=== PATIENT | female | born 1985 | race Caucasian/White ===

== ENCOUNTER → 2022-09-06 13:20 | Outpatient (CLI) | payer SELFPAY | PROVIDERS: Referring Provider Internal Medicine; Visit Provider Internal Medicine | DX: Z23 Encounter for immunization (principal) | CPT/HCPCS: 90471; 90686 ==

== ENCOUNTER 2022-10-05 10:03 | Emergency (ER) | payer OTHER, SELFPAY ==
[2022-10-05] VITALS (24 sets, daily range): BP systolic 106–145; BP diastolic 53–68; PULSE 102–121; RESP 13–22; TEMP 37.2; O2SAT 95–100; BMI 23.8
--- NOTE | 2022-10-05 10:21 | DI.CT.S_ITS ---
PROCEDURE: CT ANGIO HEAD AND NECK INDICATIONS: left visual loss TECHNIQUE: After the administration of intravenous contrast, 1 mm thick sections acquired from the aortic arch through the [place] of [place]. Post-contrast 4.5 mm thick sections then re-acquired from the foramen magnum to the vertex. For radiation dose reduction, the following was used: automated exposure control, adjustment of mA and/or kV according to patient size. COMPARISON: None. FINDINGS: Image quality: Excellent. BRAIN: CSF spaces: Ventricles are normal in size and shape. Basal cisterns are patent. No extra-axial fluid collections. Brain: No midline shift. No intracranial bleeds or masses. Jesus-white matter interface appears intact. Skull and face: Calvarium and facial bones appear intact, without suspicious lesions. Orbits appear normal. Sinuses: Sinuses and mastoids are clear. HEAD CT ANGIOGRAPHY: Anterior circulation: Intracranial internal carotid arteries are normal in size and flow. The flow within the paired anterior cerebral arteries is normal and symmetric. The flow within the middle cerebral arteries is normal and symmetric. The anterior communicating artery is seen. No aneurysms are seen. Posterior circulation: Visualized portions of the vertebral arteries demonstrate normal caliber, and join to form a normal appearing basilar artery. Flow within the posterior cerebral arteries is normal and symmetric. No aneurysms are seen. NECK CT ANGIOGRAPHY: Carotid system: The great vessels demonstrate a conventional anatomy as they arise from the aortic arch. The origins of the common carotid arteries appear patent. The common carotid arteries demonstrate normal caliber and courses. The bifurcation regions are both widely patent. The internal carotid arteries demonstrate normal calibers and courses. Posterior circulation: The origins of the vertebral arteries both appear widely patent. The more superior extracranial portions of both vertebral arteries also demonstrate normal courses and calibers. They join to form a normal appearing basilar artery. Soft tissues: Visualized neck soft tissues demonstrate no suspicious abnormalities. Bones: No suspicious bony lesions. Visualized cervical spine appears normally aligned. IMPRESSION: 1. Normal CT angiogram of the head and neck Any quantitative measurements of stenosis were performed using NASCET criteria. Approved by: Uri Fregoso M.D. on 10/05/2022 at 10:45
--- NOTE | 2022-10-05 10:21 | DI.CT.S_ITS ---
PROCEDURE: CT STROKE INDICATIONS: left visual loss TECHNIQUE: Noncontrast 4.5 mm thick angled axial sections acquired from the foramen magnum to the vertex, with coronal reformats. For radiation dose reduction, the following was used: automated exposure control, adjustment of mA and/or kV according to patient size. COMPARISON: None. FINDINGS: Image quality: Excellent. CSF spaces: Basal cisterns are patent. No extra-axial fluid collections. Ventricles are normal in size and shape. Brain: No midline shift. No intracranial masses or hemorrhage. Jesus-white matter interface is normal. Skull and face: Calvarium and visualized facial bones are intact, without suspicious lesions. Sinuses: Visualized sinuses and mastoids are clear. IMPRESSION: No intracranial hemorrhage or other acute intracranial abnormality. Results discussed with Dr. Polo by Dr. Santillan at 1040 hours on 10/05/2022. This study fulfills neurological imaging criteria for inclusion or exclusion of acute stroke therapies based on available published neurological imaging guidelines. Dictated by: Lorne Santillan M.D. on 10/05/2022 at 10:30 Approved by: Lorne Santillan M.D. on 10/05/2022 at 10:40
[2022-10-05 10:30] LABS: Prothrombin Time 11.5 SECONDS (10.1-12.7)
[2022-10-05 10:32] LABS: Add Manual Diff / Slide Review NO; Basophils Absolute Auto 0 /uL (0-100); Basophils Percent Auto 0.8 % (0-2); Eosinophils Absolute Auto 100 /uL (0-450); Eosinophils Percent Auto 0.9 % (2-4); Hematocrit 40.6 % (36-46); Hemoglobin 13.7 g/dL (12.0-16.0); Lymphocytes Absolute Auto 2800 /uL (1100-4500); Lymphocytes Percent Auto 45.2 % (25-40); Mean Corpuscular HGB Conc 33.8 % (30-36); Mean Corpuscular Volume 82.8 fL (80-100); Monocytes Absolute Auto 600 /uL (0-900); Monocytes Percent Auto 9.1 % (3-14); Neutrophils Absolute Auto 2700 /uL (1500-7000); Platelet Count 262 X10^3/uL (150-400); Red Blood Cell Count 4.91 X10^6/uL (4.0-5.2); Red Cell Distribution Width 13.1 % (11.6-14.8); White Blood Cell Count 6.2 X10^3/uL (4.5-11.0)
[2022-10-05 10:33] LABS: PTT Partial Thromboplastin Tim 32 SECONDS (26-36)
--- NOTE | 2022-10-05 10:36 | ED_ITS ---
HPI - Neuro Symptoms/Deficit General Chief Complaint: Neuro Symptoms/Deficit Stated Complaint: blurry vision on left eye Time Seen by Provider: 10/05/22 10:21 Source: patient Mode of arrival: Ambulatory History of Present Illness HPI Narrative: Patient is a 37-year-old female history of migraines presenting today with left visual loss. She said she was sitting at her computer at work she had been there for about 2 hours looking at a screen trying treated emails that she could not see it she had complete visual loss for about a couple of seconds. She now says that her whole left eye is blurry. She is a mild headache. No numbness tingling or weakness no chest pain shortness of breath or other symptoms. On Anticoagulants: No Related Data Allergies Allergy/AdvReac Type Severity Reaction Status Date / Time No Known Drug Allergies Allergy Verified 10/05/22 10:09 Review of Systems Review of Systems Narrative: GENERAL: Denies chills, fatigue, malaise, fever, sweats, travel HEENT: See HPI RESPIRATORY: Denies dyspnea, cough, wheezing, hemoptysis, sputum. CARDIOVASCULAR: Denies chest pain, palpitations, orthopnea, edema GASTROINTESTINAL: Denies nausea, vomiting, abdominal pain, diarrhea, constipation, melena. : Denies dysuria, frequency, incontinence, hematuria, urinary retention, flank pain. MUSCULOSKELETAL: Denies weakness, joint pain, or bony pain SKIN: No rash, no erythema, no pruritus NEUROLOGIC: See HPI PSYCHIATRIC: No concerning psychosocial issues. 12 point review of systems is negative except for those stated above and HPI Hematologic/Lymphatic On Anticoagulants: No Patient History Social History Smoking Status: Current every day smoker Smoking Status: Current every day smoker alcohol intake frequency: holidays/special occasions only Substance Use Type: does not use Exam Initial Vital Signs Initial Vital Signs: Vital Signs Temperature 98.9 F 10/05/22 10:09 Pulse Rate 121 H 10/05/22 10:09 Respiratory Rate 16 10/05/22 10:09 Blood Pressure 126/68 10/05/22 10:09 Pulse Oximetry 97 10/05/22 10:09 Oxygen Delivery Method 10/05/22 10:09 GENERAL: Alert pleasant 37-year-old female HEENT: Head atraumatic,EOMI, pupils reactive, red reflex present bilaterally face symmetric, moist mucous membranes CARDIOVASCULAR: Tachycardic regular no murmur RESPIRATORY: Breath sounds equal bilaterally, no wheezes rales or rhonchi. ABDOMEN: Soft, nontender. Normoactive bowel sounds all 4 quadrants. No guarding or rebound. EXTREMITIES: Normal range of motion, no clubbing or edema. Neurovascularly intact NEUROLOGICAL: Alert and oriented x4.Normal gait and speech. Cranial nerves II through XII grossly intact. Good [id number], good [id number], strength equal bilaterally, no dysarthria or aphasia, sensation in tact to soft touch bilaterally, no visual changes, no facial droop SKIN: Warm, dry, no laceration, no petechiae, no rashes or lesions. Scores NIH Stroke Scale Level of Conciousness: Alert, keenly responsive Ask month/age: Answers both questions correctly. Open/close eyes, close hand: Performs both tasks correctly Best gaze horizontal: Normal Visual valentino: No visual loss Facial palsy: Normal symetrical movement Left arm drift: No drift for full 10 sec Right arm drift: No drift for full 10 sec Left leg drift: No drift for full 5 sec Right leg drift: No drift for full 5 sec Limb ataxia: Absent Sensory on face/arms/legs: Normal, no sensory loss Best language: No aphasia, normal Dysarthria: Normal Extinction or inattention: No abnormality Total NIH Stroke scale score: 0 Course Orders Ordered: ED Orders 10/05/22 11:10 COVID19 -Nasal RAPID/Pre-Proc Stat 10/05/22 11:36 Urinalysis and Microscopic Stat Urine Culture Stat 10/05/22 11:56 Urine Drug Screen, Rapid Stat Discontinued Medications Acetaminophen (Acetaminophen 325 Mg Tablet) 975 mg PO NOW ONE Stop: 10/05/22 11:51 Last Admin: 10/05/22 11:53 Dose: 975 mg Documented By: RB Sodium Chloride (Normal Saline 0.9%) 1,000 mls @ 1,000 mls/hr IV BOLUS ONE Stop: 10/05/22 11:41 Last Infusion: 10/05/22 13:14 Dose: 0 mls/hr Documented By: Admin: 10/05/22 11:16 Dose: 1,000 mls/hr Documented By: RB Sodium Chloride (Normal Saline 0.9%) 1,000 mls @ 1,000 mls/hr IV BOLUS ONE Stop: 10/05/22 14:39 Last Infusion: 10/05/22 15:45 Dose: 0 mls/hr Documented By: Admin: 10/05/22 13:55 Dose: 1,000 mls/hr Documented By: RB Ketorolac Tromethamine (Ketorolac 30 Mg/Ml Vial) 15 mg IV NOW ONE Stop: 10/05/22 10:43 Last Admin: 10/05/22 11:16 Dose: 15 mg Documented By: RB Lorazepam (Lorazepam 2 Mg/Ml Inj) 0.5 mg IV NOW ONE Stop: 10/05/22 11:55 Last Admin: 10/05/22 13:23 Dose: 0.5 mg Documented By: RB Morphine Sulfate (Morphine 4 Mg/Ml Inj) 4 mg IV NOW ONE Stop: 10/05/22 13:56 Last Admin: 10/05/22 14:11 Dose: 4 mg Documented By: RB Ondansetron HCl (Ondansetron 4 Mg/2 Ml Inj) 4 mg IV NOW ONE Stop: 10/05/22 10:43 Last Admin: 10/05/22 11:15 Dose: 4 mg Documented By: RB Vital Signs Vital signs: Vital Signs - 8 hr 10/05/22 11:45 10/05/22 11:45 10/05/22 12:00 Pulse Rate 116 H Respiratory Rate 17 Blood Pressure 125/60 124/65 Pulse Oximetry 98 10/05/22 12:00 10/05/22 12:15 10/05/22 12:15 Pulse Rate 104 H 102 H Respiratory Rate 17 16 Blood Pressure 118/61 Pulse Oximetry 99 98 10/05/22 12:30 10/05/22 12:30 10/05/22 12:45 Pulse Rate 103 H Respiratory Rate 19 Blood Pressure 114/58 L 116/59 L Pulse Oximetry 98 10/05/22 12:45 10/05/22 13:16 10/05/22 13:17 Pulse Rate 107 H 109 H Respiratory Rate 18 20 Blood Pressure 116/58 L Pulse Oximetry 98 97 10/05/22 13:17 10/05/22 13:30 10/05/22 13:30 Pulse Rate 112 H 111 H Respiratory Rate 19 20 Blood Pressure 112/54 L Pulse Oximetry 97 97 10/05/22 13:45 10/05/22 13:45 10/05/22 14:00 Pulse Rate 108 H Respiratory Rate 18 Blood Pressure 111/54 L 113/58 L Pulse Oximetry 96 10/05/22 14:00 10/05/22 14:15 10/05/22 14:15 Pulse Rate 111 H 109 H Respiratory Rate 20 20 Blood Pressure 108/54 L Pulse Oximetry 95 95 10/05/22 14:30 10/05/22 14:30 10/05/22 14:45 Pulse Rate 107 H 120 H Respiratory Rate 18 Blood Pressure 108/53 L Pulse Oximetry 95 96 10/05/22 14:46 10/05/22 14:46 10/05/22 15:00 Pulse Rate 118 H Respiratory Rate 22 Blood Pressure 118/54 L 114/56 L Pulse Oximetry 97 10/05/22 15:00 10/05/22 15:15 10/05/22 15:15 Pulse Rate 111 H 106 H Respiratory Rate 22 18 Blood Pressure 106/55 L Pulse Oximetry 97 96 10/05/22 15:26 10/05/22 15:26 10/05/22 15:34 Pulse Rate 108 H 106 H Respiratory Rate 20 19 Blood Pressure 114/57 L Pulse Oximetry 97 96 10/05/22 15:45 Pulse Rate 102 H Respiratory Rate 18 Blood Pressure Pulse Oximetry 96 MDM - Neuro Symptoms/Deficit Lab Data Result diagrams: 10/05/22 10:15 10/05/22 10:15 Labs: Lab Results 10/05/22 10/05/22 10/05/22 Range/Units 10:15 10:15 10:15 WBC 6.2 (4.5-11.0) X10^3/uL RBC 4.91 (4.0-5.2) X10^6/uL Hgb 13.7 (12.0-16.0) g/dL Hct 40.6 (36-46) % MCV 82.8 (80-100) fL MCH 28.0 (26-34) PG MCHC 33.8 (30-36) % RDW 13.1 (11.6-14.8) % Plt Count 262 (150-400) X10^3/uL Neut % (Auto) 44.0 L (50-75) % Lymph % (Auto) 45.2 H (25-40) % Frontier % (Auto) 9.1 (3-14) % Eos % (Auto) 0.9 L (2-4) % Baso % (Auto) 0.8 (0-2) % Neut # (Auto) 2700 (1774-4571) /uL Lymph # (Auto) 2800 (5196-6415) /uL Frontier # (Auto) 600 (0-900) /uL Eos # (Auto) 100 (0-450) /uL Baso # (Auto) 0 (0-100) /uL PT 11.5 (10.1-12.7) SECONDS INR 1.0 (0.9-1.3) APTT 32 (26-36) SECONDS D-Dimer (<500) ng/ml Sodium 139 (137-145) mmol/L Potassium 3.9 (3.4-5.1) mmol/L Chloride 106 (98-107) mmol/L Carbon Dioxide 24 (22-32) mmol/L BUN 10 (7-17) mg/dL Creatinine 0.42 L (0.52-1.04) mg/dL Estimated GFR > 60 (>60) mL/min BUN/Creatinine Ratio 23.8 H (6-22) Glucose 111 H (70-100) mg/dL Calcium 9.5 (8.4-10.2) mg/dL Total Bilirubin 0.3 (0.2-1.3) mg/dL AST 47 H (14-36) IU/L ALT 50 H (<35) IU/L Alkaline Phosphatase 97 (38-126) U/L Total Creatine Kinase 60 (30-135) U/L CK-MB (CK-2) TNP CK-MB (CK-2) Rel Index TNP Troponin I < 0.012 (0.01-0.034) ng/mL Total Protein 7.2 (6.3-8.2) g/dL Albumin 3.9 (3.5-5.0) g/dL Globulin 3.3 (1.7-4.1) g/dL Albumin/Globulin Ratio 1.2 (1.0-2.8) Urine Color Urine Appearance Urine pH (4.5-8.0) Ur Specific [place] (1.000-1.035) Urine Protein (Negative) Urine Glucose (UA) (Negative) g/dL Urine Ketones (NEGATIVE) Urine Occult Blood (Negative) Urine Nitrate (Negative) Urine Bilirubin (NEGATIVE) Urine Urobilinogen (0.2) E.U./dL Ur Leukocyte Esterase (NEGATIVE) Urine RBC (0-5/HPF) Urine WBC (0-5/HPF) Ur Squamous Epith Cells (0-5/HPF) Urine Bacteria (None) Ur Culture Indicated? U Opiates 300ng/mL cut (Negative) Ur Oxycodone Screen (Negative) Urine Methadone Screen (Negative) Ur Barbiturates Screen (Negative) U Tricyclic Antidepress (Negative) Ur Phencyclidine Scrn (Negative) Ur Amphetamines Screen (Negative) U Methamphetamines Scrn (Negative) Ur MDMA Scrn (Ecstasy) (Negative) U Benzodiazepines Scrn (Negative) Urine Cocaine Screen (Negative) U Marijuana (THC) Screen (Negative) Ethyl Alcohol < 10 ( - 10) mg/dL SARS-CoV-2 (PCR) (Negative) 10/05/22 10/05/22 10/05/22 Range/Units 10:18 11:10 11:36 WBC (4.5-11.0) X10^3/uL RBC (4.0-5.2) X10^6/uL Hgb (12.0-16.0) g/dL Hct (36-46) % MCV (80-100) fL MCH (26-34) PG MCHC (30-36) % RDW (11.6-14.8) % Plt Count (150-400) X10^3/uL Neut % (Auto) (50-75) % Lymph % (Auto) (25-40) % Frontier % (Auto) (3-14) % Eos % (Auto) (2-4) % Baso % (Auto) (0-2) % Neut # (Auto) (7601-5219) /uL Lymph # (Auto) (1308-7565) /uL [place] # (Auto) (0-900) /uL Eos # (Auto) (0-450) /uL Baso # (Auto) (0-100) /uL PT (10.1-12.7) SECONDS INR (0.9-1.3) APTT (26-36) SECONDS D-Dimer 517 H (<500) ng/ml Sodium (137-145) mmol/L Potassium (3.4-5.1) mmol/L Chloride (98-107) mmol/L Carbon Dioxide (22-32) mmol/L BUN (7-17) mg/dL Creatinine (0.52-1.04) mg/dL Estimated GFR (>60) mL/min BUN/Creatinine Ratio (6-22) Glucose (70-100) mg/dL Calcium (8.4-10.2) mg/dL Total Bilirubin (0.2-1.3) mg/dL AST (14-36) IU/L ALT (<35) IU/L Alkaline Phosphatase (38-126) U/L Total Creatine Kinase (30-135) U/L CK-MB (CK-2) CK-MB (CK-2) Rel Index Troponin I (0.01-0.034) ng/mL Total Protein (6.3-8.2) g/dL Albumin (3.5-5.0) g/dL Globulin (1.7-4.1) g/dL Albumin/Globulin Ratio (1.0-2.8) Urine Color Yellow Urine Appearance Clear Urine pH 7.0 (4.5-8.0) Ur Specific [place] <=1.005 (1.000-1.035) Urine Protein Negative (Negative) Urine Glucose (UA) Negative (Negative) g/dL Urine Ketones Negative (NEGATIVE) Urine Occult Blood Trace-intact (Negative) Urine Nitrate Negative (Negative) Urine Bilirubin Negative (NEGATIVE) Urine Urobilinogen 0.2 (0.2) E.U./dL Ur Leukocyte Esterase Trace H (NEGATIVE) Urine RBC None seen (0-5/HPF) Urine WBC 1-5/hpf (0-5/HPF) Ur Squamous Epith Cells 5-10 /hpf H (0-5/HPF) Urine Bacteria Few (2-10) H (None) Ur Culture Indicated? Specimen cultured U Opiates 300ng/mL cut (Negative) Ur Oxycodone Screen (Negative) Urine Methadone Screen (Negative) Ur Barbiturates Screen (Negative) U Tricyclic Antidepress (Negative) Ur Phencyclidine Scrn (Negative) Ur Amphetamines Screen (Negative) U Methamphetamines Scrn (Negative) Ur MDMA Scrn (Ecstasy) (Negative) U Benzodiazepines Scrn (Negative) Urine Cocaine Screen (Negative) U Marijuana (THC) Screen (Negative) Ethyl Alcohol ( - 10) mg/dL SARS-CoV-2 (PCR) Negative (Negative) 10/05/22 Range/Units 11:56 WBC (4.5-11.0) X10^3/uL RBC (4.0-5.2) X10^6/uL Hgb (12.0-16.0) g/dL Hct (36-46) % MCV (80-100) fL MCH (26-34) PG MCHC (30-36) % RDW (11.6-14.8) % Plt Count (150-400) X10^3/uL Neut % (Auto) (50-75) % Lymph % (Auto) (25-40) % Frontier % (Auto) (3-14) % Eos % (Auto) (2-4) % Baso % (Auto) (0-2) % Neut # (Auto) (9596-7765) /uL Lymph # (Auto) (5640-9559) /uL [place] # (Auto) (0-900) /uL Eos # (Auto) (0-450) /uL Baso # (Auto) (0-100) /uL PT (10.1-12.7) SECONDS INR (0.9-1.3) APTT (26-36) SECONDS D-Dimer (<500) ng/ml Sodium (137-145) mmol/L Potassium (3.4-5.1) mmol/L Chloride (98-107) mmol/L Carbon Dioxide (22-32) mmol/L BUN (7-17) mg/dL Creatinine (0.52-1.04) mg/dL Estimated GFR (>60) mL/min BUN/Creatinine Ratio (6-22) Glucose (70-100) mg/dL Calcium (8.4-10.2) mg/dL Total Bilirubin (0.2-1.3) mg/dL AST (14-36) IU/L ALT (<35) IU/L Alkaline Phosphatase (38-126) U/L Total Creatine Kinase (30-135) U/L CK-MB (CK-2) CK-MB (CK-2) Rel Index Troponin I (0.01-0.034) ng/mL Total Protein (6.3-8.2) g/dL Albumin (3.5-5.0) g/dL Globulin (1.7-4.1) g/dL Albumin/Globulin Ratio (1.0-2.8) Urine Color Urine Appearance Urine pH (4.5-8.0) Ur Specific [place] (1.000-1.035) Urine Protein (Negative) Urine Glucose (UA) (Negative) g/dL Urine Ketones (NEGATIVE) Urine Occult Blood (Negative) Urine Nitrate (Negative) Urine Bilirubin (NEGATIVE) Urine Urobilinogen (0.2) E.U./dL Ur Leukocyte Esterase (NEGATIVE) Urine RBC (0-5/HPF) Urine WBC (0-5/HPF) Ur Squamous Epith Cells (0-5/HPF) Urine Bacteria (None) Ur Culture Indicated? U Opiates 300ng/mL cut Negative (Negative) Ur Oxycodone Screen Negative (Negative) Urine Methadone Screen Negative (Negative) Ur Barbiturates Screen Negative (Negative) U Tricyclic Antidepress Negative (Negative) Ur Phencyclidine Scrn Negative (Negative) Ur Amphetamines Screen Negative (Negative) U Methamphetamines Scrn Negative (Negative) Ur MDMA Scrn (Ecstasy) Negative (Negative) U Benzodiazepines Scrn Negative (Negative) Urine Cocaine Screen Negative (Negative) U Marijuana (THC) Screen Negative (Negative) Ethyl Alcohol ( - 10) mg/dL SARS-CoV-2 (PCR) (Negative) Point of Care Testing Glucose POC 110 Urine Dip Bedside Urine Glucose Negative Bedside Urine Bilirubin - Negative Bedside Urine Ketone - Negative Urine Specific [place] 1.005 Bedside Urine Occult Blood - Negative Bedside Urine pH 7.0 Bedside Urine Protein - Negative Bedside Urine Urobilinogen - Negative Bedside Urine Nitrite - Negative Bedside Urine Leukocytes - Negative Esterase Imaging Data CT scan - head: Radiologist's Impression: CT Scan Report Signed Patient: Michelle Yoo MR#: [id number] : 1985 Acct:[id number] Age/Sex: 37 / F Date of Service: 10/05/22 Loc: ED Accession Number: [id number] ?? Procedure: CT Stroke Ordering Provider: Ana Polo D.O. PROCEDURE:? CT STROKE ? INDICATIONS:? left visual loss ? TECHNIQUE:? Noncontrast 4.5 mm thick angled axial sections acquired from the foramen magnum to the vertex, with coronal reformats.? For radiation dose reduction, the following was used:? automated exposure control, adjustment of mA and/or kV according to patient size.? ? COMPARISON:? None. ? FINDINGS:? Image quality:? Excellent.? ? CSF spaces:? Basal cisterns are patent.? No extra-axial fluid collections.? Ventricles are normal in size and shape.? ? Brain:? No midline shift.? No intracranial masses or hemorrhage.? Jesus-white matter interface is normal.? ? Skull and face:? Calvarium and visualized facial bones are intact, without suspicious lesions.? ? Sinuses:? Visualized sinuses and mastoids are clear.? ? IMPRESSION:? No intracranial hemorrhage or other acute intracranial abnormality. ? Results discussed with Dr. Polo by Dr. Santillan at 1040 hours on 10/05/2022. ? This study fulfills neurological imaging criteria for inclusion or exclusion of acute stroke therapies based on available published neurological imaging guidelines.? ? ? Dictated by: Lorne Santillan M.D. on 10/05/2022 at 10:30 ? ? Approved by: Lorne Santillan M.D. on 10/05/2022 at 10:40 ? CTA - brain/neck: Radiologist's Impression: Signed Patient: Michelle Yoo MR#: [id number] : 1985 Acct:[id number] Age/Sex: 37 / F Date of Service: 10/05/22 Loc: ED Accession Number: [id number] ?? Procedure: CT angio head and neck Ordering Provider: Ana Polo D.O. PROCEDURE:? CT ANGIO HEAD AND NECK ? INDICATIONS:? left visual loss ? TECHNIQUE:? ? After the administration of intravenous contrast, 1 mm thick sections acquired from the aortic arch through the [place] of [place].? Post-contrast 4.5 mm thick sections then re-acquired from the foramen magnum to the vertex. For radiation dose reduction, the following was used:? automated exposure control, adjustment of mA and/or kV ac cording to patient size.? ? COMPARISON:? None. ? FINDINGS:? Image quality:? Excellent.? ? BRAIN:? CSF spaces:? Ventricles are normal in size and shape.? Basal cisterns are patent.? No extra-axial fluid collections.? ? Brain:? No midline shift.? No intracranial bleeds or masses.? Jesus-white matter interface appears intact.? ? Skull and face:? Calvarium and facial bones appear intact, without suspicious lesions.? Orbits appear normal.? ? Sinuses:? Sinuses and mastoids are clear.? ? HEAD CT ANGIOGRAPHY:? Anterior circulation:? Intracranial internal carotid arteries are normal in size and flow.? The flow within the paired anterior cerebral arteries is normal and symmetric.? The flow within the middle cerebral arteries is normal and symmetric.? The anterior communicating artery is seen.? No aneurysms are seen.? ? Posterior circulation:? Visualized portions of the vertebral arteries demonstrat e normal caliber, and join to form a normal appearing basilar artery.? Flow within the posterior cerebral arteries is normal and symmetric.? No aneurysms are seen.? ? NECK CT ANGIOGRAPHY:? Carotid system:? The great vessels demonstrate a conventional anatomy as they arise from the aortic arch.? The origins of the common carotid arteries appear patent.? The common carotid arteries demonstrate normal caliber and courses.? The bifurcation regions are both widely patent.? The internal carotid arteries demonstrate normal calibers and courses.? ? Posterior circulation:? The origins of the vertebral arteries both appear widely patent.? The more superior extracranial portions of both vertebral arteries also demonstrate normal courses and calibers.? They join to form a normal appearing basilar mila ry.? ? Soft tissues:? Visualized neck soft tissues demonstrate no suspicious abnormalities.? ? Bones:? No suspicious bony lesions.? Visualized cervical spine appears normally aligned.? IMPRESSION:? ? 1. Normal CT angiogram of the head and neck ? Any quantitative measurements of stenosis were performed using NASCET criteria.? Approved by: Uri Fregoso M.D. on 10/05/2022 at 10:45? ECG Data Interpretation: Normal sinus rhythm rate 114 [place] interval 126 QRS [address] changes no T- wave inversions MDM Narrative Medical decision making narrative: Patient presents today as a code stroke. She had a brief loss of vision in her left eye lasting only a few seconds. It then became blurry there is no obvious hemianopsia. She has a mild headache, with history of migraines. Bedside ultrasound shows no retinal detachment or vitreous humor detachment. Really only complaining of some blurry vision no longer having floaters. Vision and symptoms actually improve with pain control. She has no other focal deficits. At this time without clear loss of vision him need biopsy via this is unlikely to be stroke. History of migraine seems more likely that this is an ocular like migraine. She is noted to be quite tachycardic pretty persistently in the emergency department. D-dimer was minimally elevated at 517. She is not short of breath. She is pretty much asymptomatic. At this time I do not see need for CT angio. Although we did discuss with the and for her to continue to monitor her heart rate at home. She has had some ongoing weird symptoms at home for awhile some tremors and other things. At this time I recommend outpatient follow-up she is being established with a new PCP she has an appointment October 26. Heart rate has also improved with fluids and pain medications. Discharge Plan Departure Patient Disposition: Home Clinical Impression: Ocular migraine, Tachycardia Instructions: Migraine -- Adult Activity Restrictions/Additional Instructions: *You have been diagnosed with probable ocular migraine *What to do: At this time please go home rest and hydrate. Your vision should start to return to normal has not already. You had full workup here in the ER. Please monitor your heart rate out home. If it is persistently greater than 125 for about 1 hour or if you have chest pain palpitations dizziness or passing out then please return to the emergency department *Continue to take medications as directed *Follow up with your primary care provider in 2-3 days or call [phone] *Return to ER if you should have the above symptoms, weakness numbness tingling loss of vision or any new, worsening or concerning symptoms Stand Alone Forms: Work Release Note Visit Report Forms: Patient Portal/API
[2022-10-05 10:39] LABS: Alanine Aminotransferase 50 IU/L (<35); Albumin 3.9 g/dL (3.5-5.0); Albumin Globulin Ratio 1.2 (1.0-2.8); Alkaline Phosphatase 97 U/L (38-126); Aspartate Aminotransferase 47 IU/L (14-36); BUN Creatinine Ratio 23.8 (6-22); Bilirubin Total 0.3 mg/dL (0.2-1.3); Blood Urea Nitrogen 10 mg/dL (7-17); Calcium 9.5 mg/dL (8.4-10.2); Carbon Dioxide 24 mmol/L (22-32); Chloride 106 mmol/L (98-107); Creatine Kinase 60 U/L (30-135); Estimated Glomerular Filt Rate > 60 mL/min (>60); Ethanol (ETOH) < 10 mg/dL; Globulin 3.3 g/dL (1.7-4.1); Glucose 111 mg/dL (70-100); HEMOLYSIS 18 (0-50); Potassium 3.9 mmol/L (3.4-5.1); Sodium 139 mmol/L (137-145); Total Protein 7.2 g/dL (6.3-8.2)
[2022-10-05 10:50] LABS: Troponin I < 0.012 ng/mL (0.01-0.034)
[2022-10-05] MEDS: ONDANSETRON 4 MG/2 ML INJ IV (11:15)
[2022-10-05] MEDS: SODIUM CHLORIDE 0.9% 1,000 ML 1000 ML IV ×2 (11:16→13:55)
[2022-10-05] MEDS: KETOROLAC 30 MG/ML VIAL 15 MG IV (11:16)
[2022-10-05] MEDS: ACETAMINOPHEN 325 MG TABLET 975 MG PO (11:53)
[2022-10-05 12:00] LABS: COVID19 -Nasal RAPID Negative (Negative)
[2022-10-05 12:01] LABS: UR Morphine/Opiate cutoff 300 Negative (Negative); Ur Creatinine Normal (Normal); Ur Specific Gravity Normal (Normal); Urine Amphetamines Negative (Negative); Urine Barbiturates Negative (Negative); Urine Benzodiazepines Negative (Negative); Urine Cocaine Negative (Negative); Urine MDMA Negative (Negative); Urine Methadone Negative (Negative); Urine Methamphetamines Negative (Negative); Urine Phencyclidine Negative (Negative); Urine Tetrahydrocannabinol Negative (Negative); Urine pH Normal (Normal)
[2022-10-05 12:02] LABS: Urine Oxycodone Negative (Negative); Urine Tricyclic Antidepressant Negative (Negative)
[2022-10-05 12:04] LABS: Appearance Urine UA CLEAR; Bilirubin Urine UA NEGATIVE (NEGATIVE); Color Urine UA YELLOW; Glucose Urine UA NEGATIVE (Negative); Ketones Urine UA NEGATIVE (NEGATIVE); Leukocyte Esterase Urine UA TRACE (NEGATIVE); Nitrite Urine UA NEGATIVE (Negative); Occult Blood Urine UA TRACE-INTACT (Negative); Protein Urine UA NEGATIVE (Negative); Specific Gravity Urine UA <=1.005 (1.000-1.035); Urobilinogen Urine UA 0.2 E.U./dL (0.2)
[2022-10-05 12:07] LABS: Bacteria Urine Few (2-10); Culture Indicated Urine Specimen Cultured; RBC Urine None Seen (0-5/HPF); Squamous Epithelial Cell Urine 5-10 /HPF (0-5/HPF); WBC Urine 1-5/HPF (0-5/HPF)
[2022-10-05] MEDS: LORazepam 2 MG/ML INJ 0.5 MG IV (13:23)
[2022-10-05 14:00] LABS: D Dimer 517 ng/ml (<500)
[2022-10-05] MEDS: MORPHINE 4 MG/ML INJ IV (14:11)
== END 2022-10-05 16:00 | disposition home or self-care (01) ==
PROVIDERS: Emergency Provider Emergency Medicine
DX: G43.109 Migraine with aura, not intractable, without status migrainosus (principal); R00.0 Tachycardia, unspecified; Z20.822 Contact with and (suspected) exposure to COVID-19
CPT/HCPCS: 36415; 70450; 70496; 70498; 80053; 80305; 80320; 81001; 81003; 82550; 82962; 84484; 85025; 85379; 85610; 85730; 87086; 87635; 93005; 93010; 96361; 96374; 96375; 99284; 99285; C9803; J1885; J2060; J2270; J2405; Q9967

== ENCOUNTER → 2022-10-15 08:37 | Outpatient (CLI) | payer OTHER, SELFPAY ==
[2022-10-15 09:13] LABS: Add Manual Diff / Slide Review NO; Basophils Absolute Auto 0 /uL (0-100); Basophils Percent Auto 0.4 % (0-2); Eosinophils Absolute Auto 100 /uL (0-450); Eosinophils Percent Auto 0.9 % (2-4); Hematocrit 39.4 % (36-46); Hemoglobin 12.9 g/dL (12.0-16.0); Lymphocytes Absolute Auto 3000 /uL (1100-4500); Lymphocytes Percent Auto 48.5 % (25-40); Mean Corpuscular HGB Conc 32.8 % (30-36); Mean Corpuscular Hemoglobin 27.5 PG (26-34); Mean Corpuscular Volume 83.9 fL (80-100); Monocytes Absolute Auto 600 /uL (0-900); Monocytes Percent Auto 9.1 % (3-14); Neutrophils Absolute Auto 2600 /uL (1500-7000); Neutrophils Percent Auto 41.1 % (50-75); Platelet Count 302 X10^3/uL (150-400); Red Blood Cell Count 4.69 X10^6/uL (4.0-5.2); Red Cell Distribution Width 13.6 % (11.6-14.8); White Blood Cell Count 6.3 X10^3/uL (4.5-11.0)
[2022-10-15 09:42] LABS: Alanine Aminotransferase 44 IU/L (<35); Albumin 3.6 g/dL (3.5-5.0); Albumin Globulin Ratio 1.3 (1.0-2.8); Alkaline Phosphatase 93 U/L (38-126); Aspartate Aminotransferase 38 IU/L (14-36); BUN Creatinine Ratio 24.4 (6-22); Bilirubin Total 0.6 mg/dL (0.2-1.3); Blood Urea Nitrogen 11 mg/dL (7-17); Calcium 9.7 mg/dL (8.4-10.2); Carbon Dioxide 23 mmol/L (22-32); Chloride 105 mmol/L (98-107); Cholesterol 157 mg/dL (140-199); Estimated Glomerular Filt Rate > 60 mL/min (>60); Globulin 2.7 g/dL (1.7-4.1); Glucose 98 mg/dL (70-100); HDL Cholesterol 70 mg/dL (40-60); HEMOLYSIS < 15 (0-50); LDL Cholesterol Calculated 62 mg/dL (<100); Potassium 3.7 mmol/L (3.4-5.1); Sodium 139 mmol/L (137-145); Total Protein 6.3 g/dL (6.3-8.2); Triglycerides 124 mg/dL (35-150)
[2022-10-15 09:57] LABS: Free T3, Triiodothyronine Free > 22.80 pg/mL (2.77-5.27); Free T4, Direct Thyroxine 6.44 ng/dL (0.78-2.19)
[2022-10-15 10:11] LABS: Thyroid Stimulating Hormone < 0.015 uIU/mL (0.47-4.68)
== END ==
PROVIDERS: Referring Provider Registered Nurse; Visit Provider Registered Nurse
DX: R00.0 Tachycardia, unspecified (principal)
CPT/HCPCS: 36415; 80053; 80061; 84439; 84443; 84481; 85025

== ENCOUNTER → 2022-11-09 07:01 | Outpatient (CLI) | payer OTHER, SELFPAY ==
[2022-11-09 07:18] LABS: Add Manual Diff / Slide Review NO; Basophils Absolute Auto 0 /uL (0-100); Basophils Percent Auto 0.6 % (0-2); Eosinophils Absolute Auto 200 /uL (0-450); Eosinophils Percent Auto 2.3 % (2-4); Hematocrit 40.4 % (36-46); Hemoglobin 13.4 g/dL (12.0-16.0); Lymphocytes Absolute Auto 3400 /uL (1100-4500); Lymphocytes Percent Auto 50.1 % (25-40); Mean Corpuscular HGB Conc 33.1 % (30-36); Mean Corpuscular Hemoglobin 27.4 PG (26-34); Mean Corpuscular Volume 82.7 fL (80-100); Monocytes Absolute Auto 500 /uL (0-900); Monocytes Percent Auto 6.8 % (3-14); Neutrophils Absolute Auto 2700 /uL (1500-7000); Neutrophils Percent Auto 40.2 % (50-75); Platelet Count 321 X10^3/uL (150-400); Red Blood Cell Count 4.88 X10^6/uL (4.0-5.2); Red Cell Distribution Width 13.1 % (11.6-14.8); White Blood Cell Count 6.7 X10^3/uL (4.5-11.0)
[2022-11-09 07:50] LABS: Alanine Aminotransferase 35 IU/L (<35); Alkaline Phosphatase 86 U/L (38-126); Aspartate Aminotransferase 35 IU/L (14-36); BUN Creatinine Ratio 19.2 (6-22); Bilirubin Total 0.7 mg/dL (0.2-1.3); Blood Urea Nitrogen 10 mg/dL (7-17); Calcium 9.5 mg/dL (8.4-10.2); Carbon Dioxide 25 mmol/L (22-32); Chloride 105 mmol/L (98-107); Estimated Glomerular Filt Rate > 60 mL/min (>60); Glucose 107 mg/dL (70-100); Sodium 137 mmol/L (137-145); Total Protein 6.6 g/dL (6.3-8.2)
[2022-11-12 16:12] LABS: Albumin 3.7 g/dL (3.5-5.0); Albumin Globulin Ratio 1.3 (1.0-2.8); Globulin 2.9 g/dL (1.7-4.1)
[2022-11-12 16:16] LABS: HEMOLYSIS 57 (0-50)
== END ==
PROVIDERS: PCP Family Medicine; Referring Provider Internal Medicine Endocrinology, Diabetes & Metabolism; Visit Provider Internal Medicine Endocrinology, Diabetes & Metabolism
DX: E05.90 Thyrotoxicosis, unspecified without thyrotoxic crisis or storm (principal)
CPT/HCPCS: 36415; 80053; 85025

== ENCOUNTER → 2022-11-26 12:07 | Outpatient (CLI) | payer OTHER, SELFPAY ==
[2022-11-26 14:00] LABS: Add Manual Diff / Slide Review NO; Basophils Absolute Auto 0 /uL (0-100); Basophils Percent Auto 0.4 % (0-2); Eosinophils Absolute Auto 100 /uL (0-450); Hematocrit 40.9 % (36-46); Hemoglobin 13.9 g/dL (12.0-16.0); Lymphocytes Absolute Auto 4300 /uL (1100-4500); Lymphocytes Percent Auto 49.6 % (25-40); Mean Corpuscular HGB Conc 33.9 % (30-36); Mean Corpuscular Hemoglobin 28.4 PG (26-34); Mean Corpuscular Volume 83.6 fL (80-100); Monocytes Absolute Auto 600 /uL (0-900); Monocytes Percent Auto 6.8 % (3-14); Neutrophils Absolute Auto 3700 /uL (1500-7000); Neutrophils Percent Auto 42.2 % (50-75); Platelet Count 306 X10^3/uL (150-400); Red Blood Cell Count 4.89 X10^6/uL (4.0-5.2); Red Cell Distribution Width 15.1 % (11.6-14.8); White Blood Cell Count 8.7 X10^3/uL (4.5-11.0)
[2022-11-26 14:10] LABS: Alanine Aminotransferase 29 IU/L (<35); Albumin 4.3 g/dL (3.5-5.0); Albumin Globulin Ratio 1.3 (1.0-2.8); Alkaline Phosphatase 130 U/L (38-126); Aspartate Aminotransferase 27 IU/L (14-36); BUN Creatinine Ratio 16.1 (6-22); Bilirubin Total 0.4 mg/dL (0.2-1.3); Blood Urea Nitrogen 10 mg/dL (7-17); Calcium 9.2 mg/dL (8.4-10.2); Carbon Dioxide 26 mmol/L (22-32); Chloride 104 mmol/L (98-107); Estimated Glomerular Filt Rate > 60 mL/min (>60); Globulin 3.2 g/dL (1.7-4.1); Glucose 76 mg/dL (70-100); HEMOLYSIS < 15 (0-50); Potassium 3.9 mmol/L (3.4-5.1); Sodium 138 mmol/L (137-145); Total Protein 7.5 g/dL (6.3-8.2)
[2022-11-26 14:24] LABS: Free T4, Direct Thyroxine 0.91 ng/dL (0.78-2.19)
[2022-11-26 14:38] LABS: Thyroid Stimulating Hormone < 0.015 uIU/mL (0.47-4.68)
[2022-11-27 06:45] LABS: Triiodothyronine T3 Total 142 ng/dL (71-180)
== END ==
PROVIDERS: PCP Family Medicine; Referring Provider Internal Medicine Endocrinology, Diabetes & Metabolism; Visit Provider Internal Medicine Endocrinology, Diabetes & Metabolism
DX: E05.90 Thyrotoxicosis, unspecified without thyrotoxic crisis or storm (principal)
CPT/HCPCS: 36415; 80053; 84439; 84443; 84480; 85025

== ENCOUNTER → 2022-12-29 16:30 | Outpatient (ROUT) | payer OTHER, SELFPAY ==
[2022-12-29 18:00] LABS: Influenza A - CEPHEID Flu A NEGATIVE (NEGATIVE); Influenza B - CEPHEID Flu B NEGATIVE (NEGATIVE); Respiratory Syncytial Virus Negative (Negative)
[2022-12-29 18:04] LABS: COVID-19 CEPHEID 4-PLEX PCR Negative (Negative)
== END ==
PROVIDERS: PCP Family Medicine; Visit Provider Internal Medicine
DX: R05.9 Cough, unspecified (principal); R09.81 Nasal congestion
CPT/HCPCS: 0241U

== ENCOUNTER → 2023-01-25 06:47 | Outpatient (CLI) | payer OTHER, SELFPAY ==
--- NOTE | 2023-01-25 | DI.US.S_ITS ---
PROCEDURE: US PELVIC COMPLETE INDICATIONS: PAIN 6 WEEKS POST IUD PLACEMENT TECHNIQUE: Real-time scanning was performed of the pelvic organs, with image documentation. Additional endovaginal scanning was necessary due to incomplete visualization of the adnexal and endometrial structures by transabdominal scanning. COMPARISON: None. FINDINGS: Uterus: Uterus is retroverted and normal in size at 6.3 x 3.8 x 4.1 cm. The myometrium is homogeneous. The endometrium measures 6.3 mm combined thickness. An IUD is present as expected in the uterine fundus. Ovaries: The right ovary measures 1.6 x 3.1 x 1.5 cm, with a calculated ovarian volume of 3.9 cc. The left ovary measures 3.2 x 1.7 x 1.8 cm, with a calculated ovarian volume of 5.0 cc. The ovaries have a normal sonographic appearance. Less than 12 follicles can be seen in each ovary. No adnexal masses are seen. Other: No pathologic free abdominal or pelvic fluid. IMPRESSION: 1. IUD in the uterine fundus. No sonographic abnormalities. We strive to produce accurate, complete, and clear reports of imaging services. To assist us in improving patient care, this report was composed using standard report templates and voice recognition software. Therefore, it may contain abnormal punctuation, insertions and/or omissions. Occasional wrong-word or sound-alike substitutions may occur. Though we review the report and make efforts to correct it, we do recommend that the report be read carefully in proper context to recognize any text inaccuracies. Dictated by: Drea Villanueva M.D. on 01/25/2023 at 10:59 Approved by: Drea Villanueva M.D. on 01/25/2023 at 11:01
== END ==
PROVIDERS: PCP Family Medicine; Referring Provider Registered Nurse; Visit Provider Registered Nurse
DX: N94.6 Dysmenorrhea, unspecified (principal); Z97.5 Presence of (intrauterine) contraceptive device
CPT/HCPCS: 76830; 76856

== ENCOUNTER → 2023-02-23 12:34 | Outpatient (CLI) | payer OTHER, SELFPAY ==
[2023-02-23 13:38] LABS: Add Manual Diff / Slide Review NO; Basophils Absolute Auto 100 /uL (0-100); Basophils Percent Auto 0.7 % (0-2); Eosinophils Absolute Auto 100 /uL (0-450); Eosinophils Percent Auto 1.2 % (2-4); Hemoglobin 14.9 g/dL (12.0-16.0); Lymphocytes Absolute Auto 3100 /uL (1100-4500); Lymphocytes Percent Auto 37.8 % (25-40); Mean Corpuscular HGB Conc 34.6 % (30-36); Mean Corpuscular Hemoglobin 32.5 PG (26-34); Mean Corpuscular Volume 93.9 fL (80-100); Monocytes Absolute Auto 500 /uL (0-900); Monocytes Percent Auto 6.2 % (3-14); Neutrophils Absolute Auto 4500 /uL (1500-7000); Neutrophils Percent Auto 54.1 % (50-75); Platelet Count 293 X10^3/uL (150-400); Red Blood Cell Count 4.58 X10^6/uL (4.0-5.2); Red Cell Distribution Width 16.2 % (11.6-14.8); White Blood Cell Count 8.3 X10^3/uL (4.5-11.0)
[2023-02-23 14:12] LABS: Alanine Aminotransferase 18 IU/L (<35); Albumin 4.5 g/dL (3.5-5.0); Albumin Globulin Ratio 1.4 (1.0-2.8); Alkaline Phosphatase 99 U/L (38-126); Aspartate Aminotransferase 31 IU/L (14-36); Bilirubin Total 0.5 mg/dL (0.2-1.3); Blood Urea Nitrogen 14 mg/dL (7-17); Calcium 8.9 mg/dL (8.4-10.2); Carbon Dioxide 27 mmol/L (22-32); Chloride 102 mmol/L (98-107); Estimated Glomerular Filt Rate > 60 mL/min (>60); Globulin 3.2 g/dL (1.7-4.1); Glucose 86 mg/dL (70-100); HEMOLYSIS 16 (0-50); Potassium 4.2 mmol/L (3.4-5.1); Sodium 137 mmol/L (137-145); Total Protein 7.7 g/dL (6.3-8.2)
[2023-02-23 14:29] LABS: Free T4, Direct Thyroxine < 0.07 ng/dL (0.78-2.19)
[2023-02-23 14:45] LABS: Thyroid Stimulating Hormone 97.4 uIU/mL (0.47-4.68)
== END ==
PROVIDERS: PCP Family Medicine; Referring Provider Internal Medicine Endocrinology, Diabetes & Metabolism; Visit Provider Internal Medicine Endocrinology, Diabetes & Metabolism
DX: E05.90 Thyrotoxicosis, unspecified without thyrotoxic crisis or storm (principal)
CPT/HCPCS: 36415; 80053; 84439; 84443; 85025

== ENCOUNTER → 2023-03-18 06:57 | Outpatient (CLI) | payer OTHER, SELFPAY ==
[2023-03-18 08:07] LABS: Add Manual Diff / Slide Review NO; Basophils Absolute Auto 0 /uL (0-100); Basophils Percent Auto 0.3 % (0-2); Eosinophils Absolute Auto 100 /uL (0-450); Eosinophils Percent Auto 0.8 % (2-4); Hematocrit 40.5 % (36-46); Hemoglobin 13.7 g/dL (12.0-16.0); Lymphocytes Absolute Auto 2400 /uL (1100-4500); Lymphocytes Percent Auto 30.5 % (25-40); Mean Corpuscular HGB Conc 33.9 % (30-36); Mean Corpuscular Hemoglobin 32.2 PG (26-34); Mean Corpuscular Volume 95.1 fL (80-100); Monocytes Absolute Auto 600 /uL (0-900); Monocytes Percent Auto 7.4 % (3-14); Neutrophils Absolute Auto 4800 /uL (1500-7000); Platelet Count 239 X10^3/uL (150-400); Red Blood Cell Count 4.25 X10^6/uL (4.0-5.2); Red Cell Distribution Width 13.9 % (11.6-14.8); White Blood Cell Count 7.8 X10^3/uL (4.5-11.0)
[2023-03-18 09:29] LABS: Alanine Aminotransferase 27 IU/L (<35); Albumin 3.9 g/dL (3.5-5.0); Albumin Globulin Ratio 1.4 (1.0-2.8); Alkaline Phosphatase 86 U/L (38-126); Aspartate Aminotransferase 23 IU/L (14-36); BUN Creatinine Ratio 18.2 (6-22); Bilirubin Total 0.6 mg/dL (0.2-1.3); Blood Urea Nitrogen 12 mg/dL (7-17); Calcium 8.8 mg/dL (8.4-10.2); Carbon Dioxide 28 mmol/L (22-32); Chloride 104 mmol/L (98-107); Estimated Glomerular Filt Rate > 60 mL/min (>60); Globulin 2.7 g/dL (1.7-4.1); Glucose 86 mg/dL (70-100); HEMOLYSIS < 15 (0-50); Potassium 3.9 mmol/L (3.4-5.1); Sodium 138 mmol/L (137-145); Total Protein 6.6 g/dL (6.3-8.2)
== END ==
PROVIDERS: PCP Family Medicine; Referring Provider Registered Nurse; Visit Provider Registered Nurse
DX: R10.9 Unspecified abdominal pain (principal); Z13.0 Encounter for screening for diseases of the blood and blood-forming organs and certain disorders involving the immune mechanism
CPT/HCPCS: 36415; 80053; 85025

== ENCOUNTER → 2023-05-24 06:55 | Outpatient (CLI) | payer OTHER, SELFPAY ==
[2023-05-24 07:50] LABS: Add Manual Diff / Slide Review NO; Basophils Absolute Auto 0 /uL (0-100); Basophils Percent Auto 0.5 % (0-2); Eosinophils Absolute Auto 100 /uL (0-450); Eosinophils Percent Auto 1.7 % (2-4); Hematocrit 41.9 % (36-46); Hemoglobin 14.5 g/dL (12.0-16.0); Lymphocytes Absolute Auto 2300 /uL (1100-4500); Lymphocytes Percent Auto 30.7 % (25-40); Mean Corpuscular HGB Conc 34.6 % (30-36); Mean Corpuscular Hemoglobin 32.4 PG (26-34); Mean Corpuscular Volume 93.6 fL (80-100); Monocytes Absolute Auto 500 /uL (0-900); Neutrophils Absolute Auto 4500 /uL (1500-7000); Neutrophils Percent Auto 60.1 % (50-75); Platelet Count 264 X10^3/uL (150-400); Red Blood Cell Count 4.47 X10^6/uL (4.0-5.2); Red Cell Distribution Width 13.5 % (11.6-14.8); White Blood Cell Count 7.5 X10^3/uL (4.5-11.0)
[2023-05-24 08:14] LABS: Alanine Aminotransferase 17 IU/L (<35); Albumin 3.8 g/dL (3.5-5.0); Albumin Globulin Ratio 1.4 (1.0-2.8); Alkaline Phosphatase 51 U/L (38-126); Aspartate Aminotransferase 25 IU/L (14-36); BUN Creatinine Ratio 13.8 (6-22); Bilirubin Total 0.8 mg/dL (0.2-1.3); Blood Urea Nitrogen 9 mg/dL (7-17); Calcium 8.6 mg/dL (8.4-10.2); Carbon Dioxide 26 mmol/L (22-32); Chloride 107 mmol/L (98-107); Estimated Glomerular Filt Rate > 60 mL/min (>60); Globulin 2.8 g/dL (1.7-4.1); Glucose 93 mg/dL (70-100); Potassium 4.3 mmol/L (3.4-5.1); Sodium 138 mmol/L (137-145); Total Protein 6.6 g/dL (6.3-8.2)
[2023-05-24 08:15] LABS: Free T4, Direct Thyroxine 0.65 ng/dL (0.78-2.19)
[2023-05-24 08:16] LABS: HEMOLYSIS 72 (0-50)
[2023-05-24 08:29] LABS: Thyroid Stimulating Hormone 5.08 uIU/mL (0.47-4.68)
== END ==
PROVIDERS: PCP Family Medicine; Referring Provider Internal Medicine Endocrinology, Diabetes & Metabolism; Visit Provider Internal Medicine Endocrinology, Diabetes & Metabolism
DX: E05.90 Thyrotoxicosis, unspecified without thyrotoxic crisis or storm (principal)
CPT/HCPCS: 36415; 80053; 84439; 84443; 85025

== ENCOUNTER 2023-06-19 14:26 | Emergency (ER) | payer OTHER, SELFPAY ==
[2023-06-19 14:53] VITALS: BP 108/71; PULSE 90; RESP 19; TEMP 37.1; O2SAT 97; BMI 29.2
--- NOTE | 2023-06-19 14:58 | DI.RAD.S_ITS ---
PROCEDURE: XR KNEE RT 3V INDICATIONS: injury and pain TECHNIQUE: 3 views of the knee were acquired. COMPARISON: None. FINDINGS: Bones: No fractures or dislocations. No suspicious bony lesions. On the sunrise view, there is moderate lateral patellofemoral joint space narrowing seen. Osteophyte formation can be seen along the margins of the patella. There is lateral subluxation of the patella. Soft tissues: There is a moderate joint effusion. No suspicious soft tissue calcifications. IMPRESSION: Moderate joint effusion, without a focal acute bony abnormality seen by plain film. Moderate lateral patellofemoral joint space narrowing, with lateral subluxation of the patella. If it would be helpful for clinical management decision making, please consider a dedicated, scheduled knee MRI for further evaluation (assuming that there is no contraindication). Dictated by: Negrito Dodge M.D. on 06/19/2023 at 15:15 Approved by: Negrito Dodge M.D. on 06/19/2023 at 15:16
--- NOTE | 2023-06-19 17:19 | ED_ITS ---
HPI - Extremity Injury (Lower) <LOU Christian - Last Filed: 06/19/23 18:38> General Chief Complaint: Extremity Injury, Lower Stated Complaint: rt pain/injury Time Seen by Provider: 06/19/23 17:18 Source: patient Mode of arrival: Family Vehicle History of Present Illness HPI Narrative: This is a 37-year-old female presents emergency department with right knee pain after bowling last night. States that there was an episode where she does not remember what happened but her right knee started hurting afterwards and she is developed swelling within the joint and states that it is painful to walk on now. Denies any traumatic injury. States it was likely a twisting motion. Denies history of similar episodes in the past. Denies numbness or tingling or foot pain Related Data Previous Rx's Medication Instructions Recorded hydrocodone 5 mg-acetaminophen 325 1 tab PO Q6H PRN pain #14 tabs 06/19/23 mg tablet Allergies Allergy/AdvReac Type Severity Reaction Status Date / Time No Known Drug Allergies Allergy Verified 06/19/23 14:56 Review of Systems <LOU Christian - Last Filed: 06/19/23 18:38> Review of Systems ROS Unobtainable: All systems reviewed & are unremarkable except as noted in HPI and below Patient History <LOU Christian - Last Filed: 06/19/23 18:38> Social History Smoking Status: Current every day smoker Smoking Status: Current every day smoker tobacco type: cigarettes alcohol intake frequency: a few times a week Substance Use Type: does not use Exam <LOU Christian - Last Filed: 06/19/23 18:38> Narrative Exam Narrative: MSK: Right knee has suprapatellar effusion, negative Kenney's, increased laxity with stress testing to MCL, no laxity with LCL testing, no tenderness over LCL, mild tenderness over patellar tendon which was difficult to palpate due to body habitus, tenderness over MCL, no ecchymosis, erythema, localized tenderness. Patient complains of medial pain which lateralizes below the patella. When pressure is placed on the patella medially she complains of pain, on knee extension her patella reduced to normal position. Initial Vital Signs Initial Vital Signs: Vital Signs Temperature 98.7 F 06/19/23 14:53 Pulse Rate 90 06/19/23 14:53 Respiratory Rate 19 06/19/23 14:53 Blood Pressure 108/71 06/19/23 14:53 Pulse Oximetry 97 06/19/23 14:53 Oxygen Delivery Method Room Air 06/19/23 14:53 <Andrew Alexander DO - Last Filed: 06/19/23 18:52> Initial Vital Signs Initial Vital Signs: Vital Signs Temperature 98.7 F 06/19/23 14:53 Pulse Rate 90 06/19/23 14:53 Respiratory Rate 19 06/19/23 14:53 Blood Pressure 108/71 06/19/23 14:53 Pulse Oximetry 97 06/19/23 14:53 Oxygen Delivery Method Room Air 06/19/23 14:53 Procedures <LOU Christian - Last Filed: 06/19/23 18:38> Orthopedic Splinting/Casting Injury #1: Side: right Lower Extremity Injury Location: knee Lower Extremity Immobilizer: knee immobilizer Other Orthopedic Equipment: crutches Post splinting neuro exam: intact Post splinting vascular exam: intact Placed by: Nursing Course <LOU Christian - Last Filed: 06/19/23 18:38> Orders Ordered: ED Orders 06/19/23 14:58 XR knee RT 3V Stat Discontinued Medications Hydrocodone Bitart/Acetaminophen (Hydrocodone/Acet 5/325 Tablet) 1 tab PO NOW ONE Stop: 06/19/23 17:25 Last Admin: 06/19/23 17:28 Dose: 1 tab Documented By: LITO Ketorolac Tromethamine (Ketorolac 30 Mg/Ml Vial) 15 mg IM NOW ONE Stop: 06/19/23 17:25 Last Admin: 06/19/23 17:29 Dose: 15 mg Documented By: LITO Vital Signs Vital signs: Vital Signs - 8 hr 06/19/23 14:53 06/19/23 17:32 Temperature 98.7 F Pulse Rate 90 76 Respiratory Rate 19 17 Blood Pressure 108/71 139/91 H Pulse Oximetry 97 99 Oxygen Delivery Method Room Air Room Air <Andrew Alexander DO - Last Filed: 06/19/23 18:52> Orders Ordered: ED Orders 06/19/23 14:58 XR knee RT 3V Stat Discontinued Medications Hydrocodone Bitart/Acetaminophen (Hydrocodone/Acet 5/325 Tablet) 1 tab PO NOW ONE Stop: 06/19/23 17:25 Last Admin: 06/19/23 17:28 Dose: 1 tab Documented By: LITO Ketorolac Tromethamine (Ketorolac 30 Mg/Ml Vial) 15 mg IM NOW ONE Stop: 06/19/23 17:25 Last Admin: 06/19/23 17:29 Dose: 15 mg Documented By: RL Vital Signs Vital signs: Vital Signs - 8 hr 06/19/23 14:53 06/19/23 17:32 Temperature 98.7 F Pulse Rate 90 76 Respiratory Rate 19 17 Blood Pressure 108/71 139/91 H Pulse Oximetry 97 99 Oxygen Delivery Method Room Air Room Air MDM - Extremity Injury (Lower) <LOU Christian - Last Filed: 06/19/23 18:38> Imaging Data Extremity x-ray #1: Radiologist's Impression: [address] [address] XRay Report Signed Patient: Michelle Yoo MR#: [id number] : 1985 Acct:[id number] Age/Sex: 37 / F Date of Service: 06/19/23 Loc: ED Accession Number: [id number] ?? Procedure: XR knee RT 3V Ordering Provider: Andrew Alexander D.O. PROCEDURE:? XR KNEE RT 3V ? INDICATIONS:? injury and pain ? TECHNIQUE:? 3 views of the knee were acquired.? ? COMPARISON:? None. ? FINDINGS:? ? Bones:? No fractures or dislocations.? No suspicious bony lesions.? ? On the sunrise view, there is moderate lateral patellofemoral joint space narrowing seen. Osteophyte formation can be seen along the margins of the patella.? There is lateral subluxation of the patella. ? Soft tissues:? There is a moderate joint effusion.? No suspicious soft tissue calcifications.? IMPRESSION:? Moderate joint effusion, without a focal acute bony abnormality seen by plain film. ? Moderate lateral patellofemoral joint space narrowing, with lateral subluxation of the patella. ? If it would be helpful for clinical management decision making, please consider a dedicated, scheduled knee MRI for further evaluation (assuming that there is no contraindication). ? ? Dictated by: Negrito Dodge M.D. on 06/19/2023 at 15:15 ? ? Approved by: Negrito Dodge M.D. on 06/19/2023 at 15:16 ? MDM Narrative Medical decision making narrative: Chief Complaint: Knee pain after bowling Multiple etiologies for patient's complaint considered including, but not limited to: Ligamental injury, effusion, Sanchez cyst, muscle strain, avulsion fracture, meniscal injury I have independently reviewed the patient's vital signs and nursing notes as well as prior records if available. Plan: X-ray and pain control, patient was given hydrocodone for pain x-ray shows a moderate joint effusion Course of Care: Right knee has palpable effusion but this is dramatic and she is tenderness over the MCL, could be meniscal injury, will immobilize in a knee immobilizer, treat with Toradol, hydrocodone, have her follow-up with orthopedics for evaluation and give crutches for ambulation. She is able to fully extend passively, neurovascularly intact without weakness with extension, the fraternal reduced and does not appear subluxated any longer Social considerations that may affect disposition: none Questions are addressed and there is agreement with the plan and for follow-up. I consulted with the ED attending physician Dr. Alexander as needed for higher level of care considerations and they were available for discussion and recommendations regarding plan of care and diagnostic testing. Patient is appropriate for outpatient management. Discharge Plan Departure Patient Disposition: Home Clinical Impression: Right knee injury Qualifiers: Encounter type: initial encounter Qualified Code(s): S89.91XA - Unspecified injury of right lower leg, initial encounter Effusion of knee Qualifiers: Laterality: right Qualified Code(s): M25.461 - Effusion, right knee Instructions: DI for Knee Effusion Activity Restrictions/Additional Instructions: *You have been diagnosed with a moderate knee effusion, tenderness over the MCL, concerning for ligamental injury. Please schedule follow-up at [facility] within the next week. Ice this, elevate it, wear the knee immobilizer while work, try to avoid extra activity. Use pain pills as needed, ibuprofen 6 mg every 6 hours with food and water with Tylenol, I hope that you feel better soon. Use the Sha bandage at nighttime to help support and try to avoid walking without the knee immobilizer. I have forwarded your chart and imaging to [facility] for your follow-up, please call them to schedule an appointment. *What to do: *Please continue to take your regular medications as directed. [x ] New medication prescriptions sent to your pharmacy: [ [facility]] [ ] New medication written as a paper prescription [ ] No new medications given *Please call and schedule follow up with your primary care provider in 2-3 days, at least for an update. Let them know you were seen in the Emergency Department for the above problem. We will electronically transmit a record of today's note if your PCP or specialist is in our system. *If you do not have a primary care provider please contact [phone] to establish care with one of the [facility] primary care providers. *Return to the Emergency Department for worsening symptoms, inability to keep liquids down, fever greater than 101F, chills, or other concerning symptom. Prescriptions: New hydrocodone-acetaminophen 5-325 mg tablet 1 tab PO Q6H PRN (Reason: pain) Qty: 14 0RF Referrals: [facility] [Provider Group] Bren Cintron MD [Primary Care Provider] - Stand Alone Forms: Patient Portal/API <Andrew Alexander DO - Last Filed: 06/19/23 18:52> [facility] Attestation: I was immediately available in the department for consultation. Documentation has been reviewed. I agree with assessment and plan.
[2023-06-19] MEDS: HYDROCODONE/ACET 5/325 TABLET 1 TAB PO (17:28)
[2023-06-19] MEDS: KETOROLAC 30 MG/ML VIAL 15 MG IM (17:29)
[2023-06-19 17:32] VITALS: BP 139/91; PULSE 76; RESP 17; O2SAT 99
--- NOTE | 2023-06-19 17:42 | PC.NURSE ---
Patient evaluated, treated, and discharged by provider prior to nursing assessment.
== END 2023-06-19 17:38 | disposition home or self-care (01) ==
PROVIDERS: Emergency Provider Nurse Practitioner Critical Care Medicine; PCP Family Medicine
DX: S89.91XA Unspecified injury of right lower leg, initial encounter (principal); M25.461 Effusion, right knee; X50.1XXA Overexertion from prolonged static or awkward postures, initial encounter; Y93.54 Activity, bowling
CPT/HCPCS: 73562; 96372; 99283; 99284; J1885

== ENCOUNTER → 2023-06-23 09:05 | Outpatient (CLI) | payer OTHER, SELFPAY ==
--- NOTE | 2023-06-23 | DI.MRI.S_ITS ---
PROCEDURE: MR KNEE RT WO CON INDICATIONS: RIGHT KNEE MENISCUS TEAR TECHNIQUE: Noncontrast sagittal PD fast spin echo and T2 fast spin echo with fat saturation, sagittal 3-D FLASH with fat saturation; coronal T1 spin echo and PD fast spin echo with fat saturation, and axial PD fast spin echo with fat saturation through the knee. COMPARISON: X-ray right knee, 06/19/2023. FINDINGS: Image quality: Excellent. Menisci: There is medial and lateral meniscal extrusion. Suspect mild degenerative tear of the peripheral aspect of the posterior horn of the medial meniscus. The medial and lateral menisci demonstrate normal morphology and internal signal. The meniscal root ligaments appear intact. Cruciate ligaments: The anterior and posterior cruciate ligaments appear intact. Medial structures: The medial collateral ligament appears intact. The possemimembranosus tendon insertions and meniscocapsular junction appear intact. Visualized portions of the pes anserinus tendons appear normal. No abnormal bursal fluid. Lateral structures: The lateral collateral ligament, long and short heads of the biceps femoris tendon appear intact. The popliteus tendon appears normal. Iliotibial band appears normal. Anterior structures: Insall-Salvati index (TL/PL = 1.71). The quadriceps and patellar tendons appear intact. There is lateral tilt of patella. Low-grade patellar tendinitis and quadriceps tendinous. No femoral trochlear dysplasia or ventral trochlear prominence. No edema in the infrapatellar fat pad. Bones and cartilage: No bone marrow contusions or fractures. Chondromalacia patella most pronounced in the lateral facet of patella with 4-thickness cartilage thinning and associated subchondral edema and cyst formation. There is red marrow conversion in distal femur and proximal tibia Joint space: There is moderate knee joint fluid. No Sanchez's cyst. Normal appearing synovial plicae are incidentally noted. IMPRESSION: 1. Medial and lateral meniscal extrusions. Question degenerative tear of the peripheral aspect of the posterior of the medial meniscus. 2. Patella miguel angel and chondromalacia patella. 3. Low-grade patellar tendinitis and quadriceps tendinitis. 4. Moderate knee joint effusion. 5. Red marrow conversion in distal femur and proximal tibia. This finding may be related to hematological disorder such as anemia. Recommend clinical correlation. Dictated by: Blank Verdin M.D. on 06/23/2023 at 17:16 Approved by: Blank Verdin M.D. on 06/24/2023 at 13:29
== END ==
PROVIDERS: PCP Family Medicine; Referring Provider Physician Assistant Medical; Visit Provider Physician Assistant Medical
DX: S83.206A Unspecified tear of unspecified meniscus, current injury, right knee, initial encounter (principal); M22.41 Chondromalacia patellae, right knee; M22.8X1 Other disorders of patella, right knee; M76.51 Patellar tendinitis, right knee; M25.461 Effusion, right knee
CPT/HCPCS: 73721

== ENCOUNTER → 2023-07-07 08:10 | Outpatient (CLI) | payer OTHER, SELFPAY ==
[2023-07-07 09:59] LABS: Free T4, Direct Thyroxine 1.04 ng/dL (0.78-2.19)
[2023-07-07 10:13] LABS: Thyroid Stimulating Hormone 0.998 uIU/mL (0.47-4.68)
== END ==
PROVIDERS: PCP Family Medicine; Referring Provider Internal Medicine Endocrinology, Diabetes & Metabolism; Visit Provider Internal Medicine Endocrinology, Diabetes & Metabolism
DX: E05.90 Thyrotoxicosis, unspecified without thyrotoxic crisis or storm (principal)
CPT/HCPCS: 36415; 84439; 84443

== ENCOUNTER → 2023-09-20 14:50 | Outpatient (CLI) | payer OTHER, SELFPAY ==
[2023-09-20 15:44] LABS: Add Manual Diff / Slide Review NO; Basophils Absolute Auto 100 /uL (0-100); Basophils Percent Auto 0.6 % (0-2); Eosinophils Absolute Auto 100 /uL (0-450); Eosinophils Percent Auto 1.1 % (2-4); Hematocrit 42.5 % (36-46); Hemoglobin 14.3 g/dL (12.0-16.0); Lymphocytes Absolute Auto 3300 /uL (1100-4500); Lymphocytes Percent Auto 28.2 % (25-40); Mean Corpuscular HGB Conc 33.6 % (30-36); Mean Corpuscular Hemoglobin 31.3 PG (26-34); Mean Corpuscular Volume 93.2 fL (80-100); Monocytes Absolute Auto 700 /uL (0-900); Monocytes Percent Auto 6.4 % (3-14); Neutrophils Absolute Auto 7400 /uL (1500-7000); Neutrophils Percent Auto 63.7 % (50-75); Platelet Count 286 X10^3/uL (150-400); Red Blood Cell Count 4.56 X10^6/uL (4.0-5.2); Red Cell Distribution Width 14.8 % (11.6-14.8); White Blood Cell Count 11.7 X10^3/uL (4.5-11.0)
[2023-09-20 15:51] LABS: Alanine Aminotransferase 21 IU/L (<35); Albumin 4.1 g/dL (3.5-5.0); Albumin Globulin Ratio 1.3 (1.0-2.8); Alkaline Phosphatase 58 U/L (38-126); Aspartate Aminotransferase 24 IU/L (14-36); BUN Creatinine Ratio 23.9 (6-22); Bilirubin Total 0.4 mg/dL (0.2-1.3); Blood Urea Nitrogen 17 mg/dL (7-17); Calcium 9.6 mg/dL (8.4-10.2); Carbon Dioxide 28 mmol/L (22-32); Chloride 105 mmol/L (98-107); Estimated Glomerular Filt Rate > 60 mL/min (>60); Globulin 3.1 g/dL (1.7-4.1); Glucose 104 mg/dL (70-100); HEMOLYSIS < 15 (0-50); Potassium 3.7 mmol/L (3.4-5.1); Sodium 139 mmol/L (137-145); Total Protein 7.2 g/dL (6.3-8.2)
[2023-09-20 16:08] LABS: T4 Total Thyroxine 5.61 ug/dL (5.5-11.0)
[2023-09-20 16:21] LABS: Thyroid Stimulating Hormone 1.09 uIU/mL (0.47-4.68)
== END ==
PROVIDERS: PCP Family Medicine; Referring Provider Internal Medicine Endocrinology, Diabetes & Metabolism; Visit Provider Internal Medicine Endocrinology, Diabetes & Metabolism
DX: E05.90 Thyrotoxicosis, unspecified without thyrotoxic crisis or storm (principal)
CPT/HCPCS: 36415; 80053; 84436; 84443; 85025

== ENCOUNTER → 2023-09-29 08:57 | Outpatient (CLI) | payer OTHER, SELFPAY | PROVIDERS: PCP Family Medicine; Referring Provider Family Medicine; Visit Provider Family Medicine | DX: Z23 Encounter for immunization (principal) | CPT/HCPCS: 90471; 90686 ==

== ENCOUNTER → 2023-11-03 07:12 | Outpatient (CLI) | payer OTHER, SELFPAY ==
[2023-11-03 10:39] LABS: Follicle Stimulating Hormone 2.99 mIU/mL; Luteinizing Hormone 8.61 mIU/mL; Progesterone, Total 1.05 ng/mL
[2023-11-03 10:54] LABS: Estradiol, Total 177.7 pg/mL
[2023-11-03 11:24] LABS: HCG Quantitative /Beta subunit < 2.4 mIU/mL; Prolactin 15.7 ng/mL (3.0-18.6)
[2023-11-03 11:41] LABS: Testosterone 59.6 ng/dL (5.71-77.0)
[2023-11-03 11:47] LABS: Free T4, Direct Thyroxine 2.37 ng/dL (0.78-2.19)
[2023-11-03 11:55] LABS: Thyroid Stimulating Hormone < 0.015 uIU/mL (0.47-4.68)
== END ==
LOC: LAB 07:14
PROVIDERS: PCP Registered Nurse; Referring Provider Internal Medicine Endocrinology, Diabetes & Metabolism; Visit Provider Internal Medicine Endocrinology, Diabetes & Metabolism
DX: E05.90 Thyrotoxicosis, unspecified without thyrotoxic crisis or storm (principal); N95.1 Menopausal and female climacteric states
CPT/HCPCS: 36415; 82670; 83001; 83002; 84144; 84146; 84403; 84439; 84443; 84481; 84702

== ENCOUNTER → 2024-02-21 11:06 | Outpatient (CLI) | payer OTHER, SELFPAY ==
[2024-02-21 12:00] LABS: Hematocrit 42.7 % (36-46); Hemoglobin 14.4 g/dL (12.0-16.0); Mean Corpuscular HGB Conc 33.8 % (30-36); Mean Corpuscular Hemoglobin 30.5 PG (26-34); Mean Corpuscular Volume 90.3 fL (80-100); Platelet Count 311 X10^3/uL (150-400); Red Blood Cell Count 4.73 X10^6/uL (4.0-5.2); Red Cell Distribution Width 13.9 % (11.6-14.8); White Blood Cell Count 9.9 X10^3/uL (4.5-11.0)
[2024-02-21 12:37] LABS: Alanine Aminotransferase 25 IU/L (<35); Albumin 4.4 g/dL (3.5-5.0); Albumin Globulin Ratio 1.5 (1.0-2.8); Alkaline Phosphatase 66 U/L (38-126); Aspartate Aminotransferase 26 IU/L (14-36); BUN Creatinine Ratio 22.6 (6-22); Bilirubin Total 0.4 mg/dL (0.2-1.3); Blood Urea Nitrogen 14 mg/dL (7-17); Calcium 9.4 mg/dL (8.4-10.2); Carbon Dioxide 24 mmol/L (22-32); Chloride 109 mmol/L (98-107); Estimated Glomerular Filt Rate > 60 mL/min (>60); Glucose 105 mg/dL (70-100); HEMOLYSIS < 15 (0-50); Potassium 3.7 mmol/L (3.4-5.1); Sodium 141 mmol/L (137-145); Total Protein 7.4 g/dL (6.3-8.2)
[2024-02-21 12:46] LABS: Free T3, Triiodothyronine Free 8.88 pg/mL (2.77-5.27); Free T4, Direct Thyroxine 2.44 ng/dL (0.78-2.19)
[2024-02-21 13:13] LABS: Thyroid Stimulating Hormone < 0.015 uIU/mL (0.47-4.68)
== END ==
PROVIDERS: PCP Registered Nurse; Referring Provider Internal Medicine Endocrinology, Diabetes & Metabolism; Visit Provider Internal Medicine Endocrinology, Diabetes & Metabolism
DX: E05.90 Thyrotoxicosis, unspecified without thyrotoxic crisis or storm (principal)
CPT/HCPCS: 36415; 80053; 84439; 84443; 84481; 85027

== ENCOUNTER → 2024-03-29 14:58 | Outpatient (CLI) | payer OTHER, SELFPAY ==
--- NOTE | 2024-03-29 14:59 | DI.MG.S_ITS ---
BILATERAL DIGITAL SCREENING MAMMOGRAM 3D/2D WITH CAD: 03/29/2024 CLINICAL: Routine screening. Family history of breast cancer. Baseline exam. No prior exams were available for comparison. Both breasts are heterogeneously dense, which may obscure small masses (category c / 51-75% glandular tissue). Current study was also evaluated with a Computer Aided Detection (CAD) system. No significant masses, calcifications, or other findings are seen in either breast. IMPRESSION: NEGATIVE There is no mammographic evidence of malignancy. A 1 year screening mammogram is recommended. Based on the Tyrer Cuzick model (a risk assessment model) the patient's lifetime risk is 14.9% and her 10 year risk is 1.9%. According to the ACR, ACS, and NCCN guidelines, an annual breast MRI exam along with mammogram is recommended if the patient's lifetime risk is 20% or greater. This exam was interpreted at Station ID: [id number]. NOTE: For mammograms, a report in lay terms will be sent to the patient. Approximately 15% of breast malignancies will not be visualized mammographically. In the management of a palpable breast mass, a negative mammogram must not discourage biopsy of a clinically suspicious lesion. Electronically Signed By: Sherry Dickey M.D., Ph.D. roxane/sara:03/30/2024 09:52:44 letter sent: Normal Exam ACR BI-RADS Category 1: Negative [id number]
== END ==
PROVIDERS: PCP Registered Nurse; Referring Provider Registered Nurse; Visit Provider Registered Nurse
DX: Z12.31 Encounter for screening mammogram for malignant neoplasm of breast (principal); Z80.3 Family history of malignant neoplasm of breast; R92.333 Mammographic heterogeneous density, bilateral breasts
CPT/HCPCS: 77063; 77067

== ENCOUNTER → 2024-07-03 16:17 | Outpatient (CLI) | payer OTHER, SELFPAY ==
[2024-07-03 17:35] LABS: Hematocrit 42.9 % (36-46); Hemoglobin 14.2 g/dL (12.0-16.0); Mean Corpuscular HGB Conc 33.2 % (30-36); Mean Corpuscular Hemoglobin 31.1 PG (26-34); Mean Corpuscular Volume 93.7 fL (80-100); Platelet Count 309 X10^3/uL (150-400); Red Blood Cell Count 4.58 X10^6/uL (4.0-5.2); Red Cell Distribution Width 15.1 % (11.6-14.8); White Blood Cell Count 11.5 X10^3/uL (4.5-11.0)
[2024-07-03 18:02] LABS: Alanine Aminotransferase 15 IU/L (<35); Albumin Globulin Ratio 1.7 (1.0-2.8); Alkaline Phosphatase 60 U/L (38-126); Aspartate Aminotransferase 20 IU/L (14-36); BUN Creatinine Ratio 16.9 (6-22); Bilirubin Total 0.3 mg/dL (0.2-1.3); Blood Urea Nitrogen 13 mg/dL (7-17); Calcium 9.4 mg/dL (8.4-10.2); Carbon Dioxide 25 mmol/L (22-32); Chloride 108 mmol/L (98-107); Estimated Glomerular Filt Rate > 60 mL/min (>60); Globulin 2.4 g/dL (1.7-4.1); Glucose 91 mg/dL (70-100); HEMOLYSIS < 15 (0-50); Potassium 4.1 mmol/L (3.4-5.1); Sodium 141 mmol/L (137-145); Total Protein 6.4 g/dL (6.3-8.2)
[2024-07-03 18:17] LABS: Free T3, Triiodothyronine Free 3.36 pg/mL (2.77-5.27)
[2024-07-03 18:31] LABS: TSH w/ Reflex to FT4 6.29 uIU/mL (0.47-4.68)
[2024-07-03 19:53] LABS: Free T4, Direct Thyroxine 0.63 ng/dL (0.78-2.19)
== END ==
PROVIDERS: PCP Registered Nurse; Referring Provider Internal Medicine Endocrinology, Diabetes & Metabolism; Visit Provider Internal Medicine Endocrinology, Diabetes & Metabolism
DX: E05.90 Thyrotoxicosis, unspecified without thyrotoxic crisis or storm (principal)
CPT/HCPCS: 36415; 80053; 84439; 84443; 84481; 85027

== ENCOUNTER → 2024-08-17 18:45 | Outpatient (CLI) | payer OTHER, SELFPAY | PROVIDERS: PCP Registered Nurse; Referring Provider Internal Medicine; Visit Provider Internal Medicine | DX: Z23 Encounter for immunization (principal) | CPT/HCPCS: 90471; 90656 ==

== ENCOUNTER → 2024-12-13 14:08 | Outpatient (CLI) | payer OTHER, SELFPAY ==
[2024-12-13 15:31] LABS: Hematocrit 44.1 % (36-46); Hemoglobin 14.8 g/dL (12.0-16.0); Mean Corpuscular HGB Conc 33.7 % (30-36); Mean Corpuscular Hemoglobin 31.7 PG (26-34); Mean Corpuscular Volume 94.2 fL (80-100); Platelet Count 298 X10^3/uL (150-400); Red Blood Cell Count 4.68 X10^6/uL (4.0-5.2); Red Cell Distribution Width 14.4 % (11.6-14.8); White Blood Cell Count 11.2 X10^3/uL (4.5-11.0)
[2024-12-13 15:54] LABS: Alanine Aminotransferase 23 IU/L (<35); Albumin 4.2 g/dL (3.5-5.0); Albumin Globulin Ratio 1.7 (1.0-2.8); Alkaline Phosphatase 54 U/L (38-126); Aspartate Aminotransferase 26 IU/L (14-36); BUN Creatinine Ratio 17.3 (6-22); Bilirubin Total 0.1 mg/dL (0.2-1.3); Blood Urea Nitrogen 13 mg/dL (7-17); Calcium 9.6 mg/dL (8.4-10.2); Carbon Dioxide 27 mmol/L (22-32); Chloride 106 mmol/L (98-107); Estimated Glomerular Filt Rate > 60 mL/min (>60); Globulin 2.5 g/dL (1.7-4.1); Glucose 80 mg/dL (70-100); HEMOLYSIS < 15 (0-50); Potassium 4.2 mmol/L (3.4-5.1); Sodium 141 mmol/L (137-145); Total Protein 6.7 g/dL (6.3-8.2)
[2024-12-13 16:17] LABS: Free T3, Triiodothyronine Free 3.87 pg/mL (2.77-5.27); Free T4, Direct Thyroxine 0.84 ng/dL (0.78-2.19)
[2024-12-13 16:30] LABS: Thyroid Stimulating Hormone 2.28 uIU/mL (0.47-4.68)
== END ==
PROVIDERS: PCP Registered Nurse; Referring Provider Internal Medicine Endocrinology, Diabetes & Metabolism; Visit Provider Internal Medicine Endocrinology, Diabetes & Metabolism
DX: E05.90 Thyrotoxicosis, unspecified without thyrotoxic crisis or storm (principal)
CPT/HCPCS: 36415; 80053; 84439; 84443; 84481; 85027

== ENCOUNTER 2025-03-04 08:11 | Day surgery (SDC) | payer OTHER, SELFPAY ==
[2025-02-26 14:03] VITALS: BMI 28.3
[2025-03-04] VITALS (7 sets, daily range): BP systolic 113–137; BP diastolic 58–85; PULSE 88–106; RESP 16; TEMP 36.3–36.5; O2SAT 99–100
--- NOTE | 2025-03-04 | PATH_ITS ---
[facility] Accession Number: [id number] No. of containers..01 Tissue . 01 Material submitted: . cervix - LEEP CONE, CERVIX . 01 Clinical history: . STITCH @ 12 O'CLOCK . 01 Diagnosis: LEEP CONE, CERVIX: Focal, mild involvement by low-grade squamous intraepithelial lesion / CHRISS 1 in the 3-6 and 6-9 o'clock quadrants. Margins indeterminate due to electrocautery artifact and tissue disruption. No high grade dysplasia or invasive tumor identified. [facility] 03/08/2025 1443 Local . 01 Electronically signed: . Ronel Downing MD, Pathologist NPI- [id number] . 01 Gross description: . Received in formalin with two identifiers and LEEP cone biopsy cervix, stitch at 12 o'clock, is an oriented circular fragment of cervix with a suture designating 12 o'clock per the requisition (1.1 cm from 12-6, 1.4 cm from 3-9, and 0.2 cm thick) with shah, slightly roughened ectocervix and a patulous os, 0.3 cm in diameter. The endocervical margin is inked orange while the remaining stromal margins are inked blue. The specimen is radially sectioned and submitted entirely as follows: . A1: 12 to 3. A2: 3 to 6. A3: 6-9. A4: 9-12. ([id number]) /MRV 03/05/2025 1853 Local . 01 Microscopic: . An immunohistochemical stain for p16 is performed to evaluate for block reactivity. The control stained with appropriate reactivity. . RESULTS: Blocks A1-A4 P16: Negative for blcok immunostaining. . The absence of p16 block immunostaining mitigates against the presence of high risk HPV DNA in this biopsy. . * This test was developed and the performance characteristics were validated by [facility]. It has not been cleared or approved by the U.S. Food and Drug Administration. . 01 Pathologist provided ICD-10: N87.0 . 01 CPT . 337365, L05657 Specimen Comment: A courtesy copy of this report has been sent to [phone] Performed at: [address] [address], [place], [place] [id number] MD Parth Alvarado MD Phone: [phone]
[2025-03-04] MEDS: LACTATED RINGERS 1,000 ML 42 ML IV (09:02)
[2025-03-04] MEDS: ACETAMINOPHEN 325 MG TABLET 975 MG PO (09:02)
--- NOTE | 2025-03-04 09:53 | PM.GYNHP.1 ---
History of Present Illness History of Present Illness Narrative: Michelle Yoo is a 39 year old female who presents for a LEEP cone biopsy of the cervix due to high-grade dysplasia. 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) Surgical History (Updated 02/25/25 @ 20:11 by Ina Alexander) Anesthesia History of kidney removal (~1999) Family History (Updated 02/25/25 @ 20:12 by Ina Alexander) Father Hyperlipidemia Mother Hyperlipidemia Social History household members: significant other Smoking Status: Current every day smoker alcohol intake: current Meds Home Medications and Allergies Home Medications Medication Instructions Recorded Confirmed Type methimazole 5 mg tablet 2.5 mg PO DAILY PRN Thyroid 03/04/25 03/04/25 History Allergies Allergy/AdvReac Type Severity Reaction Status Date / Time No Known Drug Allergies Allergy Verified 03/04/25 08:49 Exam Vital Signs (past 8 hours): - 03/04/25 08:59 Temperature 97.6 F Pulse Rate 88 Respiratory Rate 16 Blood Pressure 113/79 Pulse Oximetry 99 Oxygen Delivery Method Room Air Oxygen Delivery Method Room Air Narrative Exam Narrative: HEENT: No thyromegaly, no anterior cervical or supraclavicular lymphadenopathy. Lungs:Clear to auscultation bilaterally, no wheezes. Cardiovascular: Regular rate and rhythm, no murmurs, rubs, or gallops. Abdomen: No scars. No hepatosplenomegaly. No masses palpable. External genitalia: Normal Vagina: Normal Cervix: Normal Bimanual exam: 6 Week size anteverted uterus. Mobile. Extremities: No edema Assessment & Plan Assessment & Plan narrative: Assessment: 39-year-old with high-grade dysplasia of the cervix Plan: LEEP cone biopsy of the cervix The risks, benefits, and alternatives to the procedure were explained to the patient. The risks including bleeding and infection. She understands these risks and agrees to proceed. A full par Q was held and consent form was signed. Time-Based Coding :: [TOTAL MINUTES] spent with patient and on the chart (including review of chart, obtaining history, exam, reviewing outside data, placing orders, documenting exam and treatment plan, and counseling patient) on [DATE].
--- NOTE | 2025-03-04 09:59 | PM.PREOP ---
Pre-operative Note Interval Note History & Physical reviewed/Exam performed by Physician: Yes Changes to H&P: No H&P completed within 30 days and has changed as indicated here:: 03/04/25
--- NOTE | 2025-03-04 10:22 | SUR.OPER ---
Lithotomy on padded OR bed, head on pillow, arms secured on padded arm boards at <90 degrees abduction. Legs secured in padded yellow fins stirrups.
[2025-03-04] MEDS: POTASSIUM IODIDE/IODINE 473 ML SOLUTION TOP (10:26)
--- NOTE | 2025-03-04 10:36 | PM.GYNOP.1 ---
Operative Date/Time/Diagnoses Date of procedure: 03/04/25 Time of procedure: 10:36 Pre-op diagnosis: High grade dysplasia of the cervix Post-op diagnosis: same Procedure & Clinicians Procedure: Procedures Operation Date: 03/04/25 09:45 Actual Procedure Side Surgeon p colposcopy, LEEP Procedure Rebecca Figueroa MD Surgeon: Rebecca Figueroa Anesthesia Type: General (LMA) Operative Notes Findings: Lugol's light area at 6 o'clock on the cervix IUD strings visible Closure Type: not applicable Specimen(s): other (LEEP cone bx of the cervix, stitch at 6 o'clock) Estimated blood loss (mL): 3 Blood products transfused: none Procedure in detail: After informed consent was obtained, the patient was taken to the operating room where she was placed in the dorsal supine position. After adequate LMA general anesthesia was achieved, she was placed in the dorsal lithotomy position, and prepped and draped in the usual sterile fashion. A time-out was performed. All personnel in the operating room were wearing 3 M masks. A plastic coated bivalve speculum was placed into the vagina with suction attached. A plastic coated single-tooth tenaculum was placed on the anterior lip of the cervix. An IUD string was visible and was tucked into the endocervical canal. Lugol's solution was applied to the cervix. There was a Lugol's light area at the 6 o'clock position. Using the 15 mm loop, and settings at 80 cut and 60 cautery, a LEEP cone biopsy of the cervix was performed. The base of the cone was cauterized with the Bovie. Hemostasis was achieved. The IUD strings were brought back down from the endocervical canal gently with a pickup. The plastic coated single-tooth tenaculum was removed from the anterior lip of the cervix. The plastic coated bivalve speculum was removed from the vagina. The specimen was tagged at the 12 o'clock position with silk suture. Sponge, lap, and instrument counts were correct x2. The patient tolerated the procedure well, and was taken to PACU in stable condition. Complications: none Post-operative Condition: stable Disposition: PACU Plan for aftercare: Home after recovery
[2025-03-04] MEDS: BENZOCAINE/MENTHOL 1 LOZ PKT 1 EACH PO (11:07)
== END 2025-03-04 11:27 | disposition home or self-care (01) ==
PROVIDERS: PCP Registered Nurse; Referring Provider Obstetrics & Gynecology; Visit Provider Obstetrics & Gynecology
PROC: 0UBC7ZZ Excision of Cervix, Via Natural or Artificial Opening (ICD-10-PCS; CPT 57522; principal; 2025-03-04 09:45)
DX: N87.0 Mild cervical dysplasia (principal); A63.0 Anogenital (venereal) warts; F17.210 Nicotine dependence, cigarettes, uncomplicated; Z97.5 Presence of (intrauterine) contraceptive device
CPT/HCPCS: 57522; J1100; J2405; J2704; J3010